=== PATIENT | female | born 1995 | race Two or more races ===

== ENCOUNTER 2022-12-17 07:28 | Day surgery (SDC) | payer OTHER ==
[~2022-12-17] VITALS: Ht 165.1 cm; Wt 73.5 kg
[2022-12-17] MEDS ORDERED: FAMOTIDINE20 MG PO (13:06)
[2022-12-17] MEDS ORDERED: TRAMADOL HCL50 MG PO (13:07)
== END 2022-12-17 15:45 | disposition home or self-care (01) ==
LOC: CIR.AMB 07:28
PROVIDERS: ATTEND Surgery
DX: K80.10 Calculus of gallbladder with chronic cholecystitis without obstruction (principal); Z20.822 Contact with and (suspected) exposure to COVID-19; Z87.891 Personal history of nicotine dependence